=== PATIENT | female | born 2000 | race Caucasian/White ===

== ENCOUNTER 2018-05-20 16:29 | Emergency (ER) | payer OTHER ==
[~2018-05-20] VITALS: Ht 154.9 cm; Wt 74.0 kg
[2018-05-20 16:41] VITALS: BP 121/49
--- NOTE | 2018-05-20 17:12 | NUR ---
PATIENT AMBULATED TO ER CHAIR E.
--- NOTE | 2018-05-20 17:13 | NUR ---
C/O ASTHMA EXACERBATION, TODAY----FULL CLEAR SPEECH , NO ACCESSORY MUSCLE USE NOTED AT THIS TIME. PT HAS BEEN ON HER CELLPHONE WHILE SEATED IN ER
[2018-05-20] MEDS ORDERED: IPRATROPIUM 0.02% 0.5 MG/2.5 ML NEBU INH ONE (17:15)
[2018-05-20] MEDS ORDERED: ALBUTEROL 0.083% 2.5 MG/3 ML NEBU INH ONE (17:15)
[2018-05-20] MEDS ORDERED: ALBUTEROL SULFATE/IPRATROPIU 3 ML SOL IH ONE (17:15)
--- NOTE | 2018-05-20 17:22 | NUR ---
RT HERE FOR TX.
--- NOTE | 2018-05-20 17:51 | NUR ---
Patient discharged with v/s stable. Written and verbal after care instructions given and explained. Patient alert, oriented and verbalized understanding of instructions. Ambulatory with steady gait. All questions addressed prior to discharge. ID band removed. Patient advised to follow up with PMD. Rx of QVAR/ALBUTEROL/LORATADINE given. Patient educated on indication of medication including possible reaction and side effects. Opportunity to ask questions provided and answered.
[2018-05-20 17:52] VITALS: BP 116/78
== END 2018-05-20 17:51 | disposition home or self-care (01) ==
LOC: MED 16:29
DX: J45.901 Unspecified asthma with (acute) exacerbation (principal)
CPT/HCPCS: 94640; 99283; J7620